=== PATIENT | male | born 1990 | race Caucasian/White ===

== ENCOUNTER 2021-11-09 15:51 | Emergency (ER) | payer OTHER ==
[~2021-11-09] VITALS: Ht 180.3 cm; Wt 73.0 kg
[2021-11-09] MEDS ORDERED: risperdal (16:09)
[2021-11-09 16:56] LABS: BASOPHILS % 0.3 % (0.0-2.0); EOSINOPHILS % 2.3 % (0.0-5.0); HEMATOCRIT. 43.2 % (42.0-52.0); HEMOGLOBIN. 13.9 g/dL (14.0-18.0); LYMPHOCYTES % 32.7 % (20.0-50.0); MEAN CORPUSCULAR HEMOGLOBIN 23.6 pg (28.0-32.0); MEAN CORPUSCULAR VOLUME 73.1 fL (80.0-94.0); MEAN PLATELET VOLUME 8.1 fl (7.4-10.4); MONOCYTES % 13.4 % (2.0-8.0); NEUTROPHILS % 51.3 % (40.0-76.0); PLATELET 254 x1000/uL (130-400); RED CELL DISTRIBUTION WIDTH 14.6 % (11.6-14.6)
[2021-11-09 17:02] LABS: CHLORIDE 108 mEq/L (98-107)
[2021-11-09 17:10] LABS: ETHANOL BLOOD < 10 mg/dL
[2021-11-10 01:00] VITALS: BP 108/74
== END 2021-11-10 00:45 ==
LOC: ER 15:51
DX: F91.8 Other conduct disorders (principal); F99 Mental disorder, not otherwise specified; R26.9 Unspecified abnormalities of gait and mobility
CPT/HCPCS: 36415; 80053; 80307; 80320; 80329; 85025; 93005; 99285; G0480

== ENCOUNTER 2021-11-24 20:31 | Emergency (ER) | payer OTHER ==
[~2021-11-24] VITALS: Ht 170.2 cm; Wt 73.0 kg
[~2021-11-24 20:31] MED LIST: risperdal
[2021-11-24] MEDS ORDERED: ASPIRIN 81MG TABLET PO ONE (21:30)
[2021-11-24] MEDS ORDERED: SODIUM CHLORIDE 0.9% 1,000 ML IV ONE (21:30)
[2021-11-24 22:50] LABS: BASOPHILS % 0.6 % (0.0-2.0); EOSINOPHILS % 3.8 % (0.0-5.0); HEMATOCRIT. 38.3 % (42.0-52.0); HEMOGLOBIN. 12.2 g/dL (14.0-18.0); LYMPHOCYTES % 47.7 % (20.0-50.0); MEAN CORPUSCULAR VOLUME 72.4 fL (80.0-94.0); MEAN PLATELET VOLUME 8.3 fl (7.4-10.4); MONOCYTES % 14.2 % (2.0-8.0); NEUTROPHILS % 33.7 % (40.0-76.0); PLATELET 248 x1000/uL (130-400); RED BLOOD CELL COUNT 5.29 mill/uL (4.7-6.1); RED CELL DISTRIBUTION WIDTH 14.2 % (11.6-14.6)
[2021-11-24 22:54] LABS: CHLORIDE 107 mEq/L (98-107)
[2021-11-24 23:07] LABS: ETHANOL BLOOD < 10 mg/dL
[2021-11-25 01:05] VITALS: BP 110/76
== END 2021-11-25 02:50 | disposition home or self-care (01) ==
LOC: ER 20:31
DX: R07.89 Other chest pain (principal); F16.10 Hallucinogen abuse, uncomplicated
CPT/HCPCS: 36415; 71045; 80053; 80307; 80320; 80329; 83880; 84484; 85025; 85379; 93005; 93970; 96360; 99285; J7030; G0480